=== PATIENT | male | born 1970 | race Caucasian/White ===

== ENCOUNTER 2016-09-01 07:16 | Emergency (ER) | payer BC ==
[2016-09-01 07:37] VITALS: BP 131/85
--- NOTE | 2016-09-01 07:49 | UC ---
Respiratory Complaint HPI - HPI Summary HPI Summary: "I just got a real dry cough, upper respiratory, and sore throat." "A little bit " headache, PND, sore throat, painful swallowing, "really dry" mostly nonproductive cough, decreased appetite, myalgias, chills, and tired/difficulty sleeping due to cough for two days. Patient is a machinist mechanic. PCP Judd Brenner. Denies asthma, never had to to use a puffer. no fevers, white spots or swollen glands. no sinus pain. + mild wheezing. - History of Current Complaint Chief Complaint: UCRespiratory Stated Complaint: SORE THROAT Time Seen by Provider: 09/01/16 07:20 - Allergies/Home Medications Allergies/Adverse Reactions: Allergies Allergy/AdvReac Type Severity Reaction Status Date / Time No Known Allergies Allergy Verified 09/01/16 07:33 Home Medications: Home Medications High Blood Pressure Medication 1 tab PO QPM 09/01/16 [History] PMH/Surg Hx/FS Hx/Imm Hx Previously Healthy: Yes Cardiovascular History Of: Reports: Hypertension - Surgical History Surgical History: Yes Surgery Procedure, Year, and Place: Cholecystectomy, ~2001, [place]; Adnoidectomy, ~1975, [place] - Family History Known Family History: Positive: Hypertension - Social History Alcohol Use: None Substance Use Type: None Smoking Status (MU): Never Smoked Tobacco - Immunization History Most Recent Influenza Vaccination: Not the 2015/2016 Season Review of Systems Constitutional: Chills, Fatigue Skin: Negative Eyes: Negative ENT: Sore Throat Respiratory: Cough Cardiovascular: Negative Gastrointestinal: Negative Genitourinary: Negative Motor: Negative Neurovascular: Negative Musculoskeletal: Negative Neurological: Negative Psychological: Negative All Other Systems Reviewed And Are Negative: Yes Physical Exam Triage Information Reviewed: Yes Appearance: Well-Appearing, No Pain Distress, Well-Nourished Vital Signs: Initial Vital Signs Temp 98.4 F 09/01/16 07:31 Pulse 80 09/01/16 07:31 Resp 16 09/01/16 07:31 BP 131/85 09/01/16 07:31 Pulse Ox 99 09/01/16 07:31 Vital Signs Reviewed: Yes Eye Exam: Normal ENT: Positive: Hearing grossly normal, Pharyngeal erythema - + PND, TMs normal. Negative: Tonsillar swelling, Tonsillar exudate Dental Exam: Normal Neck exam: Normal Neck: Positive: Supple, Nontender, No Lymphadenopathy Respiratory: Positive: No respiratory distress, No accessory muscle use, Decreased breath sounds - mild, Wheezing - mild expiratory throughout. Negative : Crackles, Rhonchi, Stridor Cardiovascular Exam: Normal Cardiovascular: Positive: RRR, No Murmur, Pulses Normal, Brisk Capillary Refill Abdominal Exam: Normal Abdomen Description: Positive: Nontender, Soft Musculoskeletal Exam: Normal Neurological Exam: Normal Psychological Exam: Normal Skin Exam: Normal UC Diagnostic Evaluation - Laboratory O2 Sat by Pulse Oximetry: 99 Respiratory Course/Dx - Differential Dx/Diagnosis Differential Diagnosis/HQI/PQRI: Asthma, Bronchitis, Laryngitis, Lower Resp Infection, Sinusitis Provider Diagnoses: mild acute bronchitis Discharge - Discharge Plan Condition: Stable Disposition: HOME Prescriptions: Albuterol HFA INHALER* [Ventolin HFA Inhaler*] 2 puff INH Q4H PRN #1 mdi PRN Reason: Cough Patient Education Materials: Acute Bronchitis (ED) Forms: *Work Release Referrals: Ginette Connor MD [Medical Doctor] - 3 Days Additional Instructions: Fluids and rest. Albuterol inhaler should be used every 4-6 hrs until your symptoms resolve. There is no evidence of any bacterial infection and therefore antibiotics are not prescribed.
== END 2016-09-01 08:08 | disposition home or self-care (01) ==
LOC: UCCORT 07:16
DX: J20.9 Acute bronchitis, unspecified (principal); I10 Essential (primary) hypertension; Z90.49 Acquired absence of other specified parts of digestive tract
CPT/HCPCS: 99212; G0463

== ENCOUNTER 2017-08-05 07:05 | Emergency (ER) | payer BC ==
[2017-08-05 07:17] VITALS: BP 142/92
--- NOTE | 2017-08-05 07:26 | UC ---
Upper Extremity HPI - HPI Summary HPI Summary: yesterday he noticed a bruise on the distal anterior forearm and he had some numbness of the pinky. The area is mildly tender. His symptoms have resolved. No known trauma. He works as a gerontology aide. - History of Current Complaint Chief Complaint: UCUpperExtremity Stated Complaint: LEFT ARM/WRIST PAIN Time Seen by Provider: 08/05/17 07:17 Hx Obtained From: Patient ?: No Onset/Duration: Sudden Onset - he awoke with this yesterday. Severity Initially: Moderate Severity Currently: Mild Pain Intensity: 0 Location Of Pain: Is Discrete @ Character: Dull, Aching Aggravating Factor(s): Movement, Lifting Alleviating Factor(s): Nothing Associated Signs And Symptoms: Positive: Bruising, Numbness/Tingling. Negative : Swelling, Redness - Allergies/Home Medications Allergies/Adverse Reactions: Allergies Allergy/AdvReac Type Severity Reaction Status Date / Time No Known Allergies Allergy Verified 08/05/17 07:12 Home Medications: Home Medications NK [No Home Medications Reported] 08/05/17 [History Confirmed 08/05/17] PMH/Surg Hx/FS Hx/Imm Hx Previously Healthy: No - obesity. - Surgical History Surgical History: Yes Surgery Procedure, Year, and Place: [place], [place]; [place]idectomy, ~1975, [place] - Family History Known Family History: Positive: Hypertension - Social History Occupation: Employed Full-time Alcohol Use: None Substance Use Type: None Smoking Status (MU): Never Smoked Tobacco - Immunization History Most Recent Influenza Vaccination: Not the 2015/2016 Season Review of Systems Musculoskeletal: Myalgia All Other Systems Reviewed And Are Negative: Yes Physical Exam Triage Information Reviewed: Yes Appearance: Well-Appearing, No Pain Distress, Obese Vital Signs: Initial Vital Signs Temp 98.7 F 08/05/17 07:14 Pulse 87 08/05/17 07:14 Resp 18 08/05/17 07:14 BP 142/92 08/05/17 07:14 Pulse Ox 98 08/05/17 07:14 Vital Signs Reviewed: Yes Eyes: Positive: Conjunctiva Clear ENT: Positive: Normal ENT inspection Neck: Negative: Nuchal Rigidity Respiratory: Positive: No respiratory distress. Negative: Respiratory distress Cardiovascular: Positive: Brisk Capillary Refill Abdomen Description: Negative: Distended Musculoskeletal Exam: Other - There is a small bruise in the area in question that is mildly tender. There is no cecelia tendernerness. Spruling neg. Rotator cuff testing neg. Neurological: Positive: Alert, Muscle Tone Normal Upper Extremity Course/Dx - Differential Dx/Diagnosis Provider Diagnoses: contusion Discharge - Discharge Plan Condition: Good Disposition: HOME Patient Education Materials: Contusion in Adults (ED) Referrals: Judd Brenner MD [Primary Care Provider] -
== END 2017-08-05 07:26 | disposition home or self-care (01) ==
LOC: UCCORT 07:05
DX: S50.12XA Contusion of left forearm, initial encounter (principal); X58.XXXA Exposure to other specified factors, initial encounter; Y92.9 Unspecified place or not applicable
CPT/HCPCS: 99211; G0463

== ENCOUNTER 2019-06-01 14:54 | Emergency (ER) | payer BC ==
[2019-06-01 15:09] VITALS: BP 144/96
--- NOTE | 2019-06-01 15:36 | UC ---
Throat Pain/Nasal Alfie HPI - HPI Summary HPI Summary: 49 yo male presents with sore throat. He tells me that over the last 2 days he has had a sore throat and swollen glands. He has been taking ibuprofen otc for his symptoms with mild relief. He states his was recently dx'd with strep and he thinks he has it. He is eating, drinking, and tolerating po well. Denies fever, chills, sinus symptoms, cough, rash, n/v. - History of Current Complaint Chief Complaint: UCRespiratory Stated Complaint: SORE THROAT Time Seen by Provider: 06/01/19 15:36 Hx Obtained From: Patient Onset/Duration: Sudden Onset Severity: Moderate Pain Intensity: 8 Pain Scale Used: 0-10 Numeric - Allergies/Home Medications Allergies/Adverse Reactions: Allergies Allergy/AdvReac Type Severity Reaction Status Date / Time No Known Allergies Allergy Verified 06/01/19 15:10 Home Medications: Home Medications Ibuprofen TAB* [Motrin TAB* 400 MG] 400 mg PO DAILY 06/01/19 [History Confirmed 06/01/19] PMH/Surg Hx/FS Hx/Imm Hx - Additional Past Medical History Additional PMH: None - Surgical History Surgical History: Yes Surgery Procedure, Year, and Place: Cholecystectomy, ~2001, [place]; Adnoidectomy, ~1975, [place] - Family History Known Family History: Positive: Hypertension - Social History Occupation: Employed Full-time Lives: With Family Alcohol Use: None Substance Use Type: None Smoking Status (MU): Never Smoked Tobacco - Immunization History Most Recent Influenza Vaccination: Not the 2016/2016 Season Review of Systems All Other Systems Reviewed And Are Negative: No Constitutional: Positive: Negative Skin: Positive: Negative Eyes: Positive: Negative ENT: Positive: Sore Throat Respiratory: Positive: Negative Cardiovascular: Positive: Negative Gastrointestinal: Positive: Negative Neurovascular: Positive: Negative Neurological: Positive: Negative Psychological: Positive: Negative Physical Exam - Summary Physical Exam Summary: GENERAL: NAD. WDWN. No pain distress. SKIN: No rashes, sores, lesions, or open wounds. HEENT: Head: AT/NC Eyes: Conjunctiva clear without inflammation or discharge. Ears: Hearing grossly normal. TMs intact, no bulging, erythema, or edema. Nose: Nasal mucosa pink and moist. NTTP maxillary and frontal sinus. Throat: Posterior oropharynx mild erythema. No tonsillar enlargement. No exudates. Uvula midline. No hoarse voice or muffled voice. NECK: Supple. Mild TTP tonsillar LAD b/l CHEST: CTAB. No r/r/w. No accessory muscle use. Breathing comfortably and in no distress. CV: RRR.. Pulses intact. Cap refill <2seconds NEURO: Alert. PSYCH: Age appropriate behavior. Triage Information Reviewed: Yes Vital Signs: Initial Vital Signs Temp 98.4 F 06/01/19 15:05 Pulse 92 06/01/19 15:05 Resp 16 06/01/19 15:05 BP 144/96 06/01/19 15:05 Pulse Ox 98 06/01/19 15:05 Laboratory Tests 06/01/19 15:31 Group A Strep Rapid Positive A Vital Signs Reviewed: Yes Throat Pain/Nasal Course/Dx - Course Course Of Treatment: POC strep positive rx for amoxicllin - Differential Dx/Diagnosis Provider Diagnosis: Strep throat Discharge ED - Sign-Out/Discharge Documenting (check all that apply): Patient Departure All imaging exams completed and their final reports reviewed: No Studies - Discharge Plan Condition: Stable Disposition: HOME Prescriptions: Amoxicillin PO (*) [Amoxicillin 500 MG CAP*] 500 mg PO Q12H #20 cap Patient Education Materials: Strep Throat (ED) Referrals: Judd Brenner MD [Primary Care Provider] - Additional Instructions: If you develop a fever, shortness of breath, chest pain, new or worsening symptoms - please call your PCP or go to the ED immediately. Your blood pressure was high at todays visit. Please see your primary provider within 4 weeks for recheck and re-evaluation. - Billing Disposition and Condition Condition: STABLE Disposition: Home
== END 2019-06-01 15:51 | disposition home or self-care (01) ==
LOC: UCEAST 14:54
DX: J02.0 Streptococcal pharyngitis (principal)
CPT/HCPCS: 87651; 99212; G0463

== ENCOUNTER 2019-08-11 07:03 | Emergency (ER) | payer BC, OTHER ==
[2019-08-11 07:19] VITALS: BP 143/83
[2019-08-11 07:29] LABS: Influenza A Molecular POSITIVE (Negative)
--- NOTE | 2019-08-11 07:37 | UC ---
FLU HPI - HPI Summary HPI Summary: 49-year-old male presents with flulike illness. He starts yesterday he had some fatigue, body aches, headache as well as some nasal congestion and some nonproductive cough.exertion worsened symptoms and resting slightly improved symptoms - History of Current Complaint Chief Complaint: UCGeneralIllness Stated Complaint: COUGH BODY ACHES Time Seen by Provider: 08/11/19 07:21 Hx Obtained From: Patient Onset/Duration: Sudden Onset Pain Intensity: 0 - Allergy/Home Medications Allergies/Adverse Reactions: Allergies Allergy/AdvReac Type Severity Reaction Status Date / Time No Known Allergies Allergy Verified 08/11/19 07:15 Home Medications: Home Medications Baloxavir Marboxil [Xofluza] 40 mg PO ONCE #2 tablet 08/11/19 [Rx] Benzonatate CAP* [Tessalon 100 MG CAP*] 100 mg PO TID PRN #20 cap 08/11/19 [Rx] guaiFENesin [Mucinex] 1 dose PO BID 08/11/19 [History Confirmed 08/11/19] PMH/Surg Hx/FS Hx/Imm Hx Previously Healthy: Yes - Surgical History Surgical History: Yes Surgery Procedure, Year, and Place: Cholecystectomy, ~ [place]; Adnoidectomy, ~1975, [place] - Family History Known Family History: Positive: Hypertension - Social History Alcohol Use: None Substance Use Type: None Smoking Status (MU): Never Smoked Tobacco - Immunization History Most Recent Influenza Vaccination: Not the 2015/2016 Season Review of Systems All Other Systems Reviewed And Are Negative: Yes Constitutional: Positive: Fever, Chills, Fatigue ENT: Positive: Ear Ache, Nasal Discharge Respiratory: Positive: Cough Musculoskeletal: Positive: Myalgia Is Patient Immunocompromised?: No Physical Exam Triage Information Reviewed: Yes Appearance: Well-Appearing, No Pain Distress, Well-Nourished Vital Signs: Initial Vital Signs Temp 97.5 F 08/11/19 07:16 Pulse 82 08/11/19 07:16 Resp 16 08/11/19 07:16 BP 143/83 08/11/19 07:16 Pulse Ox 99 08/11/19 07:16 Vital Signs Reviewed: Yes Eye Exam: Normal ENT Exam: Normal Dental Exam: Normal Neck exam: Normal Neck: Positive: 1 Respiratory Exam: Normal Cardiovascular Exam: Normal Abdominal Exam: Normal Musculoskeletal Exam: Normal Neurological Exam: Normal Psychological Exam: Normal Skin Exam: Normal Flu Course/Dx - Course Course Of Treatment: (+) flu . start influenza med. RTO prn - Differential Dx/Diagnosis Differential Diagnosis/HQI/PQRI: Influenza, Pneumonia, Upper Respiratory Infection Provider Diagnosis: Influenza Discharge ED - Sign-Out/Discharge Documenting (check all that apply): Patient Departure All imaging exams completed and their final reports reviewed: No Studies - Discharge Plan Condition: Good Disposition: HOME Prescriptions: Baloxavir Marboxil [Xofluza] 40 mg PO ONCE #2 tablet Benzonatate CAP* [Tessalon 100 MG CAP*] 100 mg PO TID PRN #20 cap PRN Reason: Cough Patient Education Materials: Influenza (ED) Forms: *Work Release Referrals: Judd Brenner MD [Primary Care Provider] - 3 Days - Billing Disposition and Condition Condition: GOOD Disposition: Home
== END 2019-08-11 07:52 | disposition home or self-care (01) ==
LOC: UCCORT 07:03
DX: J11.1 Influenza due to unidentified influenza virus with other respiratory manifestations (principal); Z90.49 Acquired absence of other specified parts of digestive tract
CPT/HCPCS: 99212; G0463

== ENCOUNTER 2019-09-04 19:21 | Emergency (ER) | payer OTHER ==
[2019-09-04 19:43] VITALS: BP 141/97
[2019-09-04] MEDS ORDERED: Albuterol/Ipratropium NEB.SOL* Albuterol 2.5 MG/Ipratropium 0.5 MG 3 ML INH ONE (20:09)
--- NOTE | 2019-09-04 20:09 | UC ---
Respiratory Complaint HPI - HPI Summary HPI Summary: C/O cough with SOB x 2 weeks. Was seen for influenza. - History of Current Complaint Chief Complaint: UCRespiratory Stated Complaint: DRY COUGH/SHORTNESS OF BREATH Time Seen by Provider: 09/04/19 20:03 Hx Obtained From: Patient Onset/Duration: Gradual Onset, Lasting Weeks - 2, Still Present Severity Initially: Moderate Severity Currently: Moderate Pain Intensity: 0 Character: Cough: Nonproductive Aggravating Factors: Deep Breaths, Recumbent Position Alleviating Factors: Upright Position Associated Signs And Symptoms: Positive: Wheezing Related History: Seasonal Allergies - Allergies/Home Medications Allergies/Adverse Reactions: Allergies Allergy/AdvReac Type Severity Reaction Status Date / Time No Known Allergies Allergy Verified 09/04/19 19:39 Home Medications: Home Medications predniSONE 20 mg TAB [Deltasone 20 MG TAB*] 60 mg PO DAILY #18 tab 09/04/19 [Rx] PMH/Surg Hx/FS Hx/Imm Hx Previously Healthy: Yes - Surgical History Surgical History: Yes Surgery Procedure, Year, and Place: Cholecystectomy, ~2001, [place]; Adnoidectomy, ~1975, [place] - Family History Known Family History: Positive: Hypertension Negative: Cardiac Disease, Diabetes - Social History Occupation: Employed Full-time Lives: With Family Alcohol Use: None Substance Use Type: None Smoking Status (MU): Never Smoked Tobacco - Immunization History Most Recent Influenza Vaccination: Not the Season Review of Systems All Other Systems Reviewed And Are Negative: Yes Respiratory: Positive: Shortness Of Breath - tightness in the breathing., Cough Physical Exam Triage Information Reviewed: Yes Appearance: Well-Appearing, Well-Nourished, Obese Vital Signs: Initial Vital Signs Temp 98.3 F 09/04/19 19:39 Pulse 94 09/04/19 19:39 Resp 16 09/04/19 19:39 BP 141/97 09/04/19 19:39 Pulse Ox 98 09/04/19 19:39 Vital Signs Reviewed: Yes Eyes: Positive: Conjunctiva Clear ENT: Positive: Pharynx normal, Nasal congestion - with allergic changes, TMs normal Neck exam: Normal Respiratory: Positive: Wheezing - expiratory wheezes with coughing. Cardiovascular Exam: Normal Cardiovascular: Positive: RRR, No Murmur Musculoskeletal Exam: Normal Neurological Exam: Normal Psychological Exam: Normal Skin Exam: Normal Diagnostics - Radiology No standard instances Radiology Interpretation Completed By: ED Physician Summary of Radiographic Findings: No acute changes - EKG Cardiac Rate: NL Cardiac Rhythm: Sinus: Normal Ectopy: None ST Segment: Normal Respiratory Course/Dx - Differential Dx/Diagnosis Differential Diagnosis/HQI/PQRI: Asthma, Lower Resp Infection, Sinusitis Provider Diagnosis: Acute bronchospasm due to viral infection, Chest tightness Discharge ED - Sign-Out/Discharge Documenting (check all that apply): Patient Departure All imaging exams completed and their final reports reviewed: No - Discharge Plan Condition: Stable Disposition: HOME Prescriptions: predniSONE 20 mg TAB [Deltasone 20 MG TAB*] 60 mg PO DAILY #18 tab Patient Education Materials: Bronchospasm (ED), How to Use a Metered-Dose Inhaler (ED) Referrals: Judd Brenner MD [Primary Care Provider] - - Billing Disposition and Condition Condition: STABLE Disposition: Home
[2019-09-04] MEDS ORDERED: Albuterol HFA INHALER* 8 gm MDI INH ONE (21:26)
== END 2019-09-04 21:42 | disposition home or self-care (01) ==
LOC: UCCORT 19:21
DX: J98.01 Acute bronchospasm (principal); B97.89 Other viral agents as the cause of diseases classified elsewhere; R07.89 Other chest pain
CPT/HCPCS: 71046; 93005; 99213; A9270-GY; G0463; J7512